=== PATIENT | female | born 1975 | race Hispanic/Latino ===

== ENCOUNTER 2018-07-08 19:30 | Emergency (ER) | payer OTHER ==
--- NOTE | 2018-07-08 20:19 | RAD REPORT ---
EXAM DESCRIPTION: RAD - Foot Right 3 View - 07/08/2018 8:11 pm CLINICAL HISTORY: Pain;Swelling COMPARISON: None FINDINGS: Nondisplaced fracture seen at the base of the fifth metatarsal compatible with a Lloyd fra cture. Mild hallux valgus seen.
--- NOTE | 2018-07-08 20:36 | ER ---
Nurse's Notes [facility] Name: Ayleen Girard Age: 42 yrs Sex: Female : 1975 Arrival Date: 07/08/2018 Time: 19:35 Bed 23 Private MD: Delbert Scruggs T Diagnosis: NON-DISPLACED FRACTURE OF BASE OF RIGHT 5 TH METATARSAL Presentation: 07/08 19:43 Presenting complaint: Patient states: Right foot pain since fall 1 week ago. Reports aj pain is not improving. Transition of care: patient was not received from another setting of care. Onset of symptoms was July 02, 2018. Risk Assessment: Do you want to hurt yourself or someone else? Patient reports no desire to harm self or others. Initial Sepsis Screen: Does the patient meet any 2 criteria? No. Patient's initial sepsis screen is negative. Does the patient have a suspected source of infection? No. Patient's initial sepsis screen is negative. Care prior to arrival: None. 19:43 Method Of Arrival: Ambulatory aj 19:43 Acuity: MACIEL 4 aj Triage Assessment: 19:46 General: Appears in no apparent distress. comfortable, Behavior is calm, cooperative, aj appropriate for age. Pain: Complains of pain in right foot. Neuro: Level of Consciousness is awake, alert, obeys commands, Oriented to person, place, time, situation, Appropriate for age. Respiratory: Airway is patent Respiratory effort is even, unlabored, Respiratory pattern is regular, symmetrical. Derm: Skin is intact, is healthy with good turgor, Skin is pink, warm \T\ dry. normal. Musculoskeletal: Reports pain in right foot. 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 - Social history:: Smoking status: Patient/guardian denies using tobacco. - Ebola Screening: : Patient negative for fever greater than or equal to 101.5 degrees Fahrenheit, and additional compatible Ebola Virus Disease symptoms Patient denies exposure to infectious person Patient denies travel to an Ebola-affected area in the 21 days before illness onset No symptoms or risks identified at this time. - Family history:: not pertinent. - Hospitalizations: : No recent hospitalization is reported. - History obtained from: friend. Screenin:57 Abuse screen: Denies threats or abuse. Nutritional screening: No deficits noted. lc1 Tuberculosis screening: No symptoms or risk factors identified. Fall Risk None identified. Assessment: 19:57 General: Appears in no apparent distress. comfortable, Behavior is calm, cooperative. lc1 Pain: Complains of pain in right foot Pain currently is 8 out of 10 on a pain scale. Quality of pain is described as tender, Pain began a week ago. Neuro: Level of Consciousness is awake, alert, obeys commands. Cardiovascular: No deficits noted. Respiratory: Airway is patent GI: No signs and/or symptoms were reported involving the gastrointestinal system. : No signs and/or symptoms were reported regarding the genitourinary system. EENT: No signs and/or symptoms were reported regarding the EENT system. Derm: No signs and/or symptoms reported regarding the dermatologic system. Musculoskeletal: Swelling present in right foot bruising to foot noted Reports pain in right foot. 21:00 Reassessment: No changes from previously documented assessment. Patient and/or family lc1 updated on plan of care and expected duration. Pain level reassessed. Vital Signs: 19:46 BP 140 / 94; Pulse 65; Resp 16; Temp 97.5; Pulse Ox 98% on R/A; Weight 74.84 kg; Height aj 5 ft. 1 in. (154.94 cm); 21:00 BP 150 / 63; Pulse 72; Resp 18; Temp 97.8(O); lc1 19:46 Body Mass Index 31.18 (74.84 kg, 154.94 cm) ED Course: 19:35 Patient arrived in ED. ds1 19:35 Delbert Scruggs MD is Private Physician. ds1 19:44 Triage completed. aj 19:46 Arm band placed on right wrist. Patient placed in an exam room. aj 19:51 Tavia Torres FNP is [facility]. kav 19:51 Corwin Lechuga MD is Attending Physician. kav 19:57 Wanda Denis is Primary Nurse. lc1 19:57 Awaiting for x-ray. lc1 19:57 Patient has correct armband on for positive identification. Bed in low position. lc1 20:12 X-ray completed. Portable x-ray completed in exam room. Patient tolerated procedure bb2 well. 20:12 Foot Right 3 View XRAY In Process Unspecified. EDMS 20:33 Maxx Oh MD is Referral Physician. kav 21:00 No provider procedures requiring assistance completed. Patient did not have IV access lc1 during this emergency room visit. Crutch training done. Ortho shoe applied to right foot. Administered Medications: 20:48 Drug: Tylenol #3 (300 mg-30 mg) 2 tabs Route: PO; lc1 21:25 Follow up: Response: No adverse reaction lc1 Outcome: 20:36 Discharge ordered by . kav 21:00 Discharged to home with crutches. 1 21:00 Condition: good 21:00 Discharge instructions given to patient, Instructed on discharge instructions, medication usage, crutch walking, Demonstrated understanding of instructions, follow-up care, medications, Prescriptions given X 1. 21:27 Patient left the ED. lc1 Signatures: Dispatcher [employer] EDMS Aide Mlils, RN RN Tavia Sparrow, FANNY RUSHINGP Raya Arreola ds1 Wanda Denis lc1 Maria Guadalupe Tabor bb2
--- NOTE | 2018-07-08 20:36 | EDPHYS ---
Physician Documentation [facility] Name: Ayleen Girard Age: 42 yrs Sex: Female : 1975 Arrival Date: 07/08/2018 Time: 19:35 Bed 23 Private MD: Delbert Scruggs T ED Physician Corwin Lechuga HPI: 07/08 19:51 This 42 yrs old Female presents to ER via Ambulatory with complaints of Foot kav Pain. 20:05 The patient presents with pain, swelling. The complaints affect the lateral aspect of kav right foot. Context: The problem was sustained at home, resulted from the patient falling, while walking. Onset: The symptoms/episode began/occurred acutely, 1 week(s) ago. Modifying factors: The symptoms are alleviated by nothing. the symptoms are aggravated by movement. Associated signs and symptoms: Pertinent positives: swelling. Severity of symptoms: At their worst the symptoms were mild, just prior to arrival. The patient has not experienced similar symptoms in the past. 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 - Social history:: Smoking status: Patient/guardian denies using tobacco. - Ebola Screening: : Patient negative for fever greater than or equal to 101.5 degrees Fahrenheit, and additional compatible Ebola Virus Disease symptoms Patient denies exposure to infectious person Patient denies travel to an Ebola-affected area in the 21 days before illness onset No symptoms or risks identified at this time. - Family history:: not pertinent. - Hospitalizations: : No recent hospitalization is reported. - History obtained from: friend. ROS: 20:05 Constitutional: Negative for fever, chills, and weight loss, Eyes: Negative for injury, kav pain, redness, and discharge, ENT: Negative for injury, pain, and discharge, Neck: Negative for injury, pain, and swelling, Cardiovascular: Negative for chest pain, palpitations, and edema, Respiratory: Negative for shortness of breath, cough, wheezing, and pleuritic chest pain, Abdomen/GI: Negative for abdominal pain, nausea, vomiting, diarrhea, and constipation, Back: Negative for injury and pain, : Negative for injury, bleeding, discharge, and swelling, Skin: Negative for injury, rash, and discoloration, Neuro: Negative for headache, weakness, numbness, tingling, and seizure, Psych: Negative for depression, anxiety, suicide ideation, homicidal ideation, and hallucinations, Allergy/Immunology: Negative for hives, rash, and allergies, Endocrine: Negative for neck swelling, polydipsia, polyuria, polyphagia, and marked weight changes, Hematologic/Lymphatic: Negative for swollen nodes, abnormal bleeding, and unusual bruising. 20:05 MS/extremity: Positive for pain, swelling, tenderness, of the lateral aspect of right foot. Exam: 20:05 Constitutional: This is a well developed, well nourished patient who is awake, alert, kav and in no acute distress. Head/Face: Normocephalic, atraumatic. Eyes: Pupils equal round and reactive to light, extra-ocular motions intact. Lids and lashes normal. Conjunctiva and sclera are non-icteric and not injected. Cornea within normal limits. Periorbital areas with no swelling, redness, or edema. ENT: Nares patent. No nasal discharge, no septal abnormalities noted. Tympanic membranes are normal and external auditory canals are clear. Oropharynx with no redness, swelling, or masses, exudates, or evidence of obstruction, uvula midline. Mucous membranes moist. Neck: Trachea midline, no thyromegaly or masses palpated, and no cervical lymphadenopathy. Supple, full range of motion without nuchal rigidity, or vertebral point tenderness. No Meningismus. Chest/axilla: Normal chest wall appearance and motion. Nontender with no deformity. No lesions are appreciated. Cardiovascular: Regular rate and rhythm with a normal S1 and S2. No gallops, murmurs, or rubs. Normal PMI, no JVD. No pulse deficits. Respiratory: Lungs have equal breath sounds bilaterally, clear to auscultation and percussion. No rales, rhonchi or wheezes noted. No increased work of breathing, no retractions or nasal flaring. Abdomen/GI: Soft, non-tender, with normal bowel sounds. No distension or tympany. No guarding or rebound. No evidence of tenderness throughout. Back: No spinal tenderness. No costovertebral tenderness. Full range of motion. Skin: Warm, dry with normal turgor. Normal color with no rashes, no lesions, and no evidence of cellulitis. Neuro: Awake and alert, GCS 15, oriented to person, place, time, and situation. Cranial nerves II-XII grossly intact. Motor strength 5/5 in all extremities. Sensory grossly intact. Cerebellar exam normal. Normal gait. Psych: Awake, alert, with orientation to person, place and time. Behavior, mood, and affect are within normal limits. 20:05 Musculoskeletal/extremity: Extremities: noted in the lateral aspect of right foot: ROM: limited active range of motion, in the lateral aspect of right foot, Circulation is intact in all extremities. Pulses: are normal with no appreciated deficits, noted to be 2+ in the bilateral radial, brachial, femoral, popliteal, posterior tibial and and dorsalis pedis arteries., Sensation intact. Vital Signs: 19:46 BP 140 / 94; Pulse 65; Resp 16; Temp 97.5; Pulse Ox 98% on R/A; Weight 74.84 kg; Height aj 5 ft. 1 in. (154.94 cm); 21:00 BP 150 / 63; Pulse 72; Resp 18; Temp 97.8(O); lc1 19:46 Body Mass Index 31.18 (74.84 kg, 154.94 cm) aj [facility]: 19:58 Medical screening is not applicable. [facility] 20:32 Data reviewed: vital signs, nurses notes, radiologic studies, plain films. [facility] 07/08 19:58 Order name: Foot Right 3 View XRAY; Complete Time: 20:29 [facility] 07/08 20:32 Order name: Crutches; Complete Time: 20:59 [facility] 07/08 20:58 Order name: Post-op Orthopedic Shoe; Complete Time: 20:59 rg2 Administered Medications: 20:48 Drug: Tylenol #3 (300 mg-30 mg) 2 tabs Route: PO; 1 21:25 Follow up: Response: No adverse reaction lc1 Disposition: 07/09 03:06 Co-signature as Attending Physician, Corwin Lechuga MD. Disposition: 07/08/18 20:36 Discharged to Home. Impression: NON-DISPLACED FRACTURE OF BASE OF RIGHT 5 TH METATARSAL. - Condition is Stable. - Discharge Instructions: Metatarsal Fracture. - Prescriptions for Tylenol- Codeine #3 300-30 mg Oral Tablet - take 2 tablet by ORAL route every 6 hours As needed; 30 tablet. - Work release form, Medication Reconciliation Form, Thank You Letter, Prescription Opioid Use form. - Follow up: Maxx Oh MD; When: 2 - 3 days; Reason: Recheck today's complaints, Continuance of care, Re-evaluation by your physician. - Problem is new. - Symptoms have improved. Signatures: Dispatcher [employer] EDMS Marissa Tobin rg2 Aide Mills RN RN Tavia Sparrow, DATA ANALYSIS ASSISTANT DATA ANALYSIS ASSISTANT elijah Denis, Wanda lc1 Corwin Lechuga MD MD Corrections: (The following items were deleted from the chart) 07/08 20:58 20:32 Splint - Posterior Leg ordered. ka rg2 20:59 20:32 Jairon wrap-joint ordered. elijah rg2 21:27 20:36 07/08/2018 20:36 Discharged to Home. Impression: NON-DISPLACED FRACTURE OF BASE lc1 OF RIGHT 5 TH METATARSAL. Condition is Stable. Forms are Medication Reconciliation Form, Thank You Letter, Antibiotic Education, Prescription Opioid Use. Follow up: Dr. Maxx Oh; When: 2 - 3 days; Reason: Recheck today's complaints, Continuance of care, Re-evaluation by your physician. Problem is new. Symptoms have improved. elijah
[2018-07-08] MEDS ORDERED: CODEINE 30MG/APAP 300MG TAB ONE (20:51)
== END 2018-07-08 21:27 | disposition home or self-care (01) ==
LOC: ER 19:30
DX: S92.354A Nondisplaced fracture of fifth metatarsal bone, right foot, initial encounter for closed fracture (principal); W18.30XA Fall on same level, unspecified, initial encounter; Y93.01 Activity, walking, marching and hiking; Y92.009 Unspecified place in unspecified non-institutional (private) residence as the place of occurrence of the external cause; E03.9 Hypothyroidism, unspecified
CPT/HCPCS: 99284

== ENCOUNTER 2019-03-29 11:35 | Emergency (ER) | payer OTHER ==
--- OUTSIDE RECORDS SUMMARY | 2019-03-29 11:43 | XMS REPORT ---
:1975 [facility] Address [address] [place] [address] Dr. Moreau [address] [place] [id number] Care Team Providers Name Role Phone Unavailable Unavailable Unavailable Problems This patient has no known problems. Allergies, Adverse Reactions, Alerts This patient has no known allergies or adverse reactions. Medications This patient has no known medications.
--- NOTE | 2019-03-29 14:46 | RAD REPORT ---
EXAM DESCRIPTION: US - Extremity Venous Uni Ltd - 03/29/2019 2:22 pm CLINICAL HISTORY: PAIN Leg swelling and edema. COMPARISON: EXT VENOUS W COMPRESSION NEDA dated 09/25/2015 FINDINGS: Left lower extremity venous system was interrogated with Doppler technique. Normal flow, c ompressibility and augmentation was noted. There is no DVT present. IMPRESSION: No evidence of left lower extremity deep venous thrombosis.
--- NOTE | 2019-03-29 15:26 | ER ---
Nurse's Notes [facility] Name: Ayleen Girard Age: 43 yrs Sex: Female : 1975 Arrival Date: 03/29/2019 Time: 11:37 Bed 12 Private MD: Diagnosis: Pain in left knee Presentation: 03/29 11:38 Presenting complaint: Patient states: left knee pain since Friday. Denies known aa5 injury. Pt states "my doctor said to come here because I take warfarin and I have a history of blood clots". Transition of care: patient was not received from another setting of care. Onset of symptoms was March 2019. Risk Assessment: Do you want to hurt yourself or someone else? Patient reports no desire to harm self or others. Initial Sepsis Screen: Does the patient meet any 2 criteria? No. Patient's initial sepsis screen is negative. Does the patient have a suspected source of infection? No. Patient's initial sepsis screen is negative. Care prior to arrival: None. 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 - Social history:: Smoking status: Patient/guardian denies using tobacco. - Ebola Screening: : No symptoms or risks identified at this time. Screenin:30 Abuse screen: Denies threats or abuse. Denies injuries from another. Nutritional ss screening: No deficits noted. Tuberculosis screening: Never had TB. Fall Risk None identified. Assessment: 15:12 Reassessment: Patient appears in no apparent distress at this time. Patient and/or ss family updated on plan of care and expected duration. Pain level reassessed. Patient is alert, oriented x 3, equal unlabored respirations, skin warm/dry/pink. Vital Signs: 11:40 BP 141 / 88; Pulse 57; Resp 16 S; Temp 97.5(TE); Pulse Ox 100% on R/A; Weight 74.84 kg aa5 (R); Height 5 ft. 2 in. (157.48 cm) (R); Pain 10/10; 11:40 Body Mass Index 30.18 (74.84 kg, 157.48 cm) aa5 ED Course: 11:37 Patient arrived in ED. as 11:38 Arm band placed on. aa5 11:39 Triage completed. aa5 13:53 Farheen Palmer FNP-C [facility]. kb 13:53 Gurvinder Chicas MD is Attending Physician. kb 14:19 US Extremity Venous Unilateral Ltd In Process Unspecified. EDMS 14:30 Louisa Caldwell, RN is Primary Nurse. ss 14:30 Patient has correct armband on for positive identification. Bed in low position. Call ss light in reach. 15:28 No provider procedures requiring assistance completed. Patient did not have IV access ss during this emergency room visit. Administered Medications: No medications were administered Outcome: 15:25 Discharge ordered by MD. kb 15:28 Discharged to home ambulatory. ss 15:28 Condition: good 15:28 Discharge instructions given to patient, Instructed on discharge instructions, follow up and referral plans. medication usage, Demonstrated understanding of instructions, follow-up care, medications. 15:29 Patient left the ED. ss Signatures: Dispatcher [employer] EDVA Farheen Palmer FNP-C FNP-Ckb Martinez, Amelia as Calderon, Audri RN RN [facility] Louisa Caldwell, ROBBY RN ss
--- NOTE | 2019-03-29 15:26 | EDPHYS ---
Physician Documentation [facility] Name: Ayleen Girard Age: 43 yrs Sex: Female : 1975 Arrival Date: 03/29/2019 Time: 11:37 Bed 12 Private MD: ED Physician Gurvinder Chicas HPI: 03/29 15:24 This 43 yrs old Female presents to ER via Ambulatory with complaints of Knee kb Pain. 15:24 The patient presents with pain, that is acute, tenderness. The complaints affect the kb left knee. Context: The problem was sustained at home, resulted from an unknown cause, the patient can fully bear weight, the patient is able to ambulate, Problem is a result from a previous injury: No. Onset: The symptoms/episode began/occurred 2 day(s) ago. Modifying factors: The symptoms are alleviated by nothing. the symptoms are aggravated by weight bearing. Associated signs and symptoms: The patient has no apparent associated signs or symptoms. Treatment prior to arrival includes: no previous treatment. Severity of symptoms: At their worst the symptoms were moderate, in the emergency department the symptoms are unchanged. The patient has not experienced similar symptoms in the past. The patient has not recently seen a physician. 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 - Social history:: Smoking status: Patient/guardian denies using tobacco. - Ebola Screening: : No symptoms or risks identified at this time. ROS: 15:22 Constitutional: Negative for fever, chills, and weight loss, ENT: Negative for injury, kb pain, and discharge, Neck: Negative for injury, pain, and swelling, Cardiovascular: Negative for chest pain, palpitations, and edema, Respiratory: Negative for shortness of breath, cough, wheezing, and pleuritic chest pain, Abdomen/GI: Negative for abdominal pain, nausea, vomiting, diarrhea, and constipation, Skin: Negative for injury, rash, and discoloration, Neuro: Negative for headache, weakness, numbness, tingling, and seizure. 15:22 MS/extremity: Positive for pain, tenderness. Exam: 15:22 Constitutional: This is a well developed, well nourished patient who is awake, alert, kb and in no acute distress. Head/Face: Normocephalic, atraumatic. Chest/axilla: Normal chest wall appearance and motion. Nontender with no deformity. No lesions are appreciated. Cardiovascular: Regular rate and rhythm with a normal S1 and S2. No gallops, murmurs, or rubs. Normal PMI, no JVD. No pulse deficits. Respiratory: Lungs have equal breath sounds bilaterally, clear to auscultation and percussion. No rales, rhonchi or wheezes noted. No increased work of breathing, no retractions or nasal flaring. Abdomen/GI: Soft, non-tender, with normal bowel sounds. No distension or tympany. No guarding or rebound. No evidence of tenderness throughout. Skin: Warm, dry with normal turgor. Normal color with no rashes, no lesions, and no evidence of cellulitis. Neuro: Awake and alert, GCS 15, oriented to person, place, time, and situation. Cranial nerves II-XII grossly intact. Motor strength 5/5 in all extremities. Sensory grossly intact. Cerebellar exam normal. Normal gait. 15:22 Musculoskeletal/extremity: Extremities: grossly normal except: noted in the left knee: pain, tenderness, ROM: intact in all extremities, Circulation is intact in all extremities. Sensation intact. Weight bearing: able to fully bear weight. Vital Signs: 11:40 BP 141 / 88; Pulse 57; Resp 16 S; Temp 97.5(TE); Pulse Ox 100% on R/A; Weight 74.84 kg aa5 (R); Height 5 ft. 2 in. (157.48 cm) (R); Pain 10/10; 11:40 Body Mass Index 30.18 (74.84 kg, 157.48 cm) aa5 MDM: 13:55 Patient medically screened. kb 15:23 Data reviewed: vital signs, nurses notes. Data interpreted: Pulse oximetry: on room air kb is 100 %. Interpretation: normal. Counseling: I had a detailed discussion with the patient and/or guardian regarding: the historical points, exam findings, and any diagnostic results supporting the discharge/admit diagnosis, radiology results, the need for outpatient follow up, a orthopedic surgeon, to return to the emergency department if symptoms worsen or persist or if there are any questions or concerns that arise at home. 03/29 14:05 Order name: US Extremity Venous Unilateral Ltd; Complete Time: 14:54 kb Administered Medications: No medications were administered Disposition: 03/29/19 15:25 Discharged to Home. Impression: Pain in left knee. - Condition is Stable. - Discharge Instructions: Knee Pain, [id number]. - Medication Reconciliation Form, Thank You Letter, Antibiotic Education, Prescription Opioid Use form. - Follow up: Emergency Department; When: As needed; Reason: Worsening of condition. Follow up: Private Physician; When: 2 - 3 days; Reason: Recheck today's complaints, Continuance of care, Re-evaluation by your physician. Signatures: Dispatcher [employer] EDFarheen Anders, MANAGER CUSTOMER SERVICE-C MANAGER CUSTOMER SERVICE-Amanda Santiago, RN RN aa5 Louisa Caldwell RN RN ss Corrections: (The following items were deleted from the chart) 15: 15:25 03/29/2019 15:25 Discharged to Home. Impression: Pain in left knee. Condition is ss Stable. Forms are Medication Reconciliation Form, Thank You Letter, Antibiotic Education, Prescription Opioid Use. Follow up: Emergency Department; When: As needed; Reason: Worsening of condition. Follow up: Private Physician; When: 2 - 3 days; Reason: Recheck today's complaints, Continuance of care, Re-evaluation by your physician. kb
== END 2019-03-29 15:29 | disposition home or self-care (01) ==
LOC: ER 11:35
DX: M25.562 Pain in left knee (principal); E03.9 Hypothyroidism, unspecified; Z79.01 Long term (current) use of anticoagulants; Z86.711 Personal history of pulmonary embolism
CPT/HCPCS: 93971

== ENCOUNTER 2019-05-02 11:09 | Emergency (ER) | payer OTHER ==
--- OUTSIDE RECORDS SUMMARY | 2019-05-02 11:12 | XMS REPORT ---
:1975 [facility] Address [address] [place] [address] Dr. Moreau [address] [place] [id number] Care Team Providers Name Role Phone Unavailable Unavailable Unavailable Problems This patient has no known problems. Allergies, Adverse Reactions, Alerts This patient has no known allergies or adverse reactions. Medications This patient has no known medications.
--- NOTE | 2019-05-02 14:07 | RAD REPORT ---
EXAM DESCRIPTION: Lena Garcia (2 Views)05/02/2019 12:03 pm CLINICAL HISTORY: Cough COMPARISON: 2015 FINDINGS: The lungs appear clear of acute infiltrate. The heart is normal size IMPRESSION: No acute abnormalities displayed
--- NOTE | 2019-05-02 14:12 | ER ---
Nurse's Notes [facility] Name: Ayleen Girard Age: 43 yrs Sex: Female : 1975 Arrival Date: 05/02/2019 Time: 11:13 Bed 18 Private MD: Diagnosis: Acute bronchitis Presentation: 05/02 11:21 Presenting complaint: Patient states: COUGH, SORE THROAT SINCE Y/D. Transition of care: bp patient was not received from another setting of care. Onset of symptoms is unknown. Risk Assessment: Do you want to hurt yourself or someone else? Patient reports no desire to harm self or others. Initial Sepsis Screen: Does the patient meet any 2 criteria? No. Patient's initial sepsis screen is negative. Does the patient have a suspected source of infection? No. Patient's initial sepsis screen is negative. Care prior to arrival: None. 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 - Social history:: Smoking status: Patient/guardian denies using tobacco. - Ebola Screening: : No symptoms or risks identified at this time. Screenin:50 Abuse screen: Denies threats or abuse. Nutritional screening: No deficits noted. em Tuberculosis screening: No symptoms or risk factors identified. Fall Risk None identified. Assessment: 11:50 General: Appears in no apparent distress. comfortable, Behavior is calm, cooperative. em Pain: Denies pain. Neuro: Level of Consciousness is awake, alert, obeys commands, Oriented to person, place, time, situation. Cardiovascular: Capillary refill < 3 seconds Patient's skin is warm and dry. Respiratory: Reports cough that is productive, pain with cough Airway is patent Respiratory effort is even, unlabored, Breath sounds are clear bilaterally. GI: Abdomen is flat, Patient currently denies nausea, vomiting. EENT: Nares are clear Oral mucosa is moist. Throat is clear is pink. Derm: Skin is intact, is healthy with good turgor, Skin is pink, warm \T\ dry. Musculoskeletal: Capillary refill < 3 seconds, Range of motion: intact in all extremities. 13:00 Reassessment: Patient appears in no apparent distress at this time. Patient and/or em family updated on plan of care and expected duration. Pain level reassessed. Patient is alert, oriented x 3, equal unlabored respirations, skin warm/dry/pink. 13:45 Reassessment: called x-ray dept. for update on radiology results, radiology dept. will em contact radiologist. 14:20 Reassessment: Patient appears in no apparent distress at this time. Patient and/or em family updated on plan of care and expected duration. Pain level reassessed. Patient is alert, oriented x 3, equal unlabored respirations, skin warm/dry/pink. Vital Signs: 11:23 BP 126 / 83; Pulse 68; Resp 16; Temp 97.9; Pulse Ox 97% ; Weight 74.84 kg; Height 5 ft. bp 2 in. (157.48 cm); 12:59 BP 116 / 73; Pulse 56; Resp 17; Temp 98.4(O); Pulse Ox 100% on R/A; mh5 13:48 BP 111 / 65; Pulse 61; Resp 15; Temp 97.9(O); Pulse Ox 100% on R/A; mh5 11:23 Body Mass Index 30.18 (74.84 kg, 157.48 cm) bp ED Course: 11:13 Patient arrived in ED. tw3 11:22 Chacorta Juarez LVN is Primary Nurse. em 11:22 Triage completed. bp 11:23 Spencer Villagomez PA is PHCP. jmm 11:23 Tejas Marcos MD is Attending Physician. jmm 11:23 Arm band placed on. bp 11:50 Patient has correct armband on for positive identification. Bed in low position. Call em light in reach. Door closed. Warm blanket given. 11:50 Flu and/or RSV swab sent to lab. Strep swab sent to lab. em 12:01 Chest Pa And Lat (2 Views) XRAY In Process Unspecified. EDMS 14:19 No provider procedures requiring assistance completed. Patient did not have IV access em during this emergency room visit. Administered Medications: No medications were administered Outcome: 14:10 Discharge ordered by . geoffrey 14:19 Discharged to home ambulatory. em 14:19 Condition: good 14:19 Discharge instructions given to patient, Instructed on discharge instructions, follow up and referral plans. medication usage, Demonstrated understanding of instructions, follow-up care, medications, Prescriptions given X 2. 14:20 Patient left the ED. em Signatures: Dispatcher [employer] EDSpencer Anders PA PA jmm Munoz, Edgar, FOOD BEVERAGE ATTENDANT FOOD BEVERAGE ATTENDANT em Adrianne Bui 5 Alvarez, Lauren tw3 Jesus Davis, RN RN bp Corrections: (The following items were deleted from the chart) 14:20 12:45 Reassessment: called x-ray dept. for update on radiology results, radiology dept. em will contact radiologist em
--- NOTE | 2019-05-02 14:12 | EDPHYS ---
Physician Documentation [facility] Name: Ayleen Girard Age: 43 yrs Sex: Female : 1975 Arrival Date: 05/02/2019 Time: 11:13 Bed 18 Private MD: ED Physician Tejas Marcos HPI: 05/02 11:35 This 43 yrs old Female presents to ER via Ambulatory with complaints of Cough, jmm Sore Throat. 11:35 The patient or guardian reports cough. Onset: The symptoms/episode began/occurred jmm gradually, 1 day(s) ago. Associated signs and symptoms: Pertinent positives: chest pain, with cough, fever, sore throat. This is a 43 year old female that presents to the ED with complaints of cough, sore throat, congestion. patient states vomiting after coughing yesterday. Complains of subjective fever and chills. . 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 - Social history:: Smoking status: Patient/guardian denies using tobacco. - Ebola Screening: : No symptoms or risks identified at this time. ROS: 11:35 Constitutional: Positive for fever. jmm 11:35 ENT: Positive for sore throat. 11:35 Cardiovascular: Positive for chest pain, with cough. 11:35 Respiratory: Positive for cough. 11:35 Abdomen/GI: Positive for vomiting, Negative for abdominal pain, diarrhea. 11:35 All other systems are negative. Exam: 11:35 Head/Face: atraumatic. Eyes: EOMI, no conjunctival erythema appreciated jmm 11:35 Neck: Trachea midline, Supple Chest/axilla: Normal chest wall appearance and motion. 11:35 Constitutional: The patient appears in no acute distress, alert, awake. 11:35 ENT: TM's: are normal, Posterior pharynx: erythema, that is mild. 11:35 Cardiovascular: Rate: normal, Rhythm: regular, Pulses: no pulse deficits are appreciated. 11:35 Respiratory: the patient does not display signs of respiratory distress, Respirations: normal, Breath sounds: are clear throughout. 11:35 Abdomen/GI: Inspection: abdomen appears normal, Bowel sounds: normal, Palpation: abdomen is soft and non-tender, in all quadrants. 11:35 Skin: Appearance: Color: normal in color. 11:35 Neuro: Orientation: is normal, Mentation: is normal, Memory: is normal. 11:35 Psych: Behavior/mood is pleasant, cooperative. Vital Signs: 11:23 BP 126 / 83; Pulse 68; Resp 16; Temp 97.9; Pulse Ox 97% ; Weight 74.84 kg; Height 5 ft. bp 2 in. (157.48 cm); 12:59 BP 116 / 73; Pulse 56; Resp 17; Temp 98.4(O); Pulse Ox 100% on R/A; mh5 13:48 BP 111 / 65; Pulse 61; Resp 15; Temp 97.9(O); Pulse Ox 100% on R/A; mh5 11:23 Body Mass Index 30.18 (74.84 kg, 157.48 cm) bp MDM: 11:35 Patient medically screened. [facility] 14:09 Data reviewed: vital signs, nurses notes. Counseling: I had a detailed discussion with geoffrey the patient and/or guardian regarding: the historical points, exam findings, and any diagnostic results supporting the discharge/admit diagnosis, lab results, radiology results, the need for outpatient follow up, to return to the emergency department if symptoms worsen or persist or if there are any questions or concerns that arise at home. ED course: Patient is alert and non toxic in appearance in the ED. Symptoms appear viral. Patient is advised to follow up with pcp and otherwise given strict return precautions. Patient understood and agrees with the plan of care. . 05/02 11:46 Order name: Flu; Complete Time: 13:03 [facility] 05/02 11:46 Order name: Strep; Complete Time: 13:03 [facility] 05/02 11:46 Order name: Chest Pa And Lat (2 Views) XRAY; Complete Time: 14:09 [facility] 05/02 12:16 Order name: Throat Culture EDMS Administered Medications: No medications were administered Disposition: 05/03 07:43 Co-signature as Attending Physician, Tejas Marcos MD I agree with the assessment and [facility] plan of care. Disposition: 05/02/19 14:10 Discharged to Home. Impression: Acute bronchitis. - Condition is Stable. - Discharge Instructions: Acute Bronchitis, Adult. - Prescriptions for Prednisone 20 mg Oral Tablet - take 3 tablet by ORAL route once daily for 5 days; 15 tablet. Albuterol Sulfate 90 mcg/actuation - inhale 1-2 puff by INHALATION route every 4-6 hours; 1 Inhaler. - Medication Reconciliation Form, Thank You Letter, Antibiotic Education, Prescription Opioid Use, Work release form form. - Follow up: Private Physician; When: 2 - 3 days; Reason: Recheck today's complaints, Continuance of care, Re-evaluation by your physician. Signatures: Dispatcher [employer] EDTejas Kee MD MD cha Mickail, Joel, PA PA Chacorta Bach, EDUCATIONAL RESOURCE CENTER TEACHER EDUCATIONAL RESOURCE CENTER TEACHER Jesus Encinas, RN RN bp Corrections: (The following items were deleted from the chart) 05/02 14:20 14:10 05/02/2019 14:10 Discharged to Home. Impression: Acute bronchitis. Condition is em Stable. Forms are Medication Reconciliation Form, Thank You Letter, Antibiotic Education, Prescription Opioid Use. Follow up: Private Physician; When: 2 - 3 days; Reason: Recheck today's complaints, Continuance of care, Re-evaluation by your physician. geoffrey
== END 2019-05-02 14:20 | disposition home or self-care (01) ==
LOC: ER 11:09
DX: J20.9 Acute bronchitis, unspecified (principal); E03.9 Hypothyroidism, unspecified
CPT/HCPCS: 71046; 87070; 87081; 87804; 99283

== ENCOUNTER 2019-07-26 15:58 | Emergency (ER) | payer OTHER ==
--- OUTSIDE RECORDS SUMMARY | 2019-07-26 15:59 | XMS REPORT ---
:1975 [facility] Address [address] [place] [address] Dr. Moreau [address] [place] [id number] Care Team Providers Name Role Phone Unavailable Unavailable Unavailable Problems This patient has no known problems. Allergies, Adverse Reactions, Alerts This patient has no known allergies or adverse reactions. Medications This patient has no known medications.
--- NOTE | 2019-07-26 16:46 | RAD REPORT ---
EXAM DESCRIPTION: RAD - Hip Left 2 View - 07/26/2019 4:37 pm CLINICAL HISTORY: Left-sided hip and pelvis pain COMPARISON: CT study 2015 FINDINGS: AP and frogleg views of the left hip were obtained. There is no fracture or dislocation of the proximal left femur. No acute or destructive bony process seen of the femur. No hip joint effus ion or periarticular abnormality suspected. Bone destructive changes are evident in the junction of the superior pubic ramus with the anterior co lumn. The appearance favors bone destruction rather than incompletely healed fracture. No fracture ch anges were present in 2015. No intervening imaging between 2015 and the current examination. No histo ry of pelvis fracture. Bony changes in the inferior pubic ramus on the left are present. These are more indeterminate as to being trauma versus bone destruction. IMPRESSION: Bone loss changes left superior pubic ramus at the junction with the anterior column. 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 Remodeling of the bony changes in the inferior pubic ramus. These are less aggressive in appearance. Correlation is needed with any malignant history. No acute proximal femur finding on the left.
--- NOTE | 2019-07-26 17:00 | ER ---
Nurse's Notes [facility] Name: Ayleen Girard Age: 43 yrs Sex: Female : 1975 Arrival Date: 07/26/2019 Time: 16:02 Bed 23 Private MD: Delbert Scruggs T Diagnosis: Pain in left hip Presentation: 07/26 16:03 Presenting complaint: Patient states: my L hip started hurting yesterday, denies hj trauma, reports started working out;. Transition of care: patient was not received from another setting of care. Onset of symptoms was July 26, 2019. Risk Assessment: Do you want to hurt yourself or someone else? Patient reports no desire to harm self or others. Initial Sepsis Screen: Does the patient meet any 2 criteria? No. Patient's initial sepsis screen is negative. Does the patient have a suspected source of infection? No. Patient's initial sepsis screen is negative. Care prior to arrival: None. 16:03 Method Of Arrival: Ambulatory 16:03 Acuity: MACIEL 4 hj Triage Assessment: 16:08 General: Appears in no apparent distress. uncomfortable, Behavior is cooperative, bp appropriate for age, anxious. Pain: Complains of pain in pelvis. EENT: No deficits noted. Neuro: No deficits noted. Cardiovascular: No deficits noted. Respiratory: No deficits noted. GI: No signs and/or symptoms were reported involving the gastrointestinal system. : No signs and/or symptoms were reported regarding the genitourinary system. Derm: No deficits noted. Musculoskeletal: Circulation, motion, and sensation intact. Range of motion: intact in all extremities. 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 - Social history:: Smoking status: Patient/guardian denies using tobacco. - Ebola Screening: : No symptoms or risks identified at this time. Screenin:09 Abuse screen: Denies threats or abuse. Denies injuries from another. Nutritional bp screening: No deficits noted. Tuberculosis screening: No symptoms or risk factors identified. Fall Risk No fall in past 12 months (0 pts). Secondary diagnosis (15 points) impaired mobility, Ambulatory Aid- Crutches/Cane/Walker (15 pts). Total Castillo Fall Scale indicates Low Risk Score (25-44 pts). Fall prevention measures have been instituted. Side Rails Up X 2 Placed close to Nursing Station Frequent Obs/Assesments occuring Family Present and informed to notify staff if they need to leave bedside. Assessment: 16:09 General: SEE TRIAGE NOTE. bp 16:26 Reassessment: PT TO XRAY. bp 16:40 Reassessment: PT RETURNED FROM XRAY. bp 17:14 Reassessment: PT D/C HOME VIA WALKER WITH FAMILY, DX WITH MUSCULOSKELETAL PAIN. bp Vital Signs: 16:04 BP 137 / 94; Pulse 95; Resp 18; Temp 98.1; Pulse Ox 100% on R/A; Weight 77.11 kg; hj Height 5 ft. 2 in. (157.48 cm); Pain 10/10; 16:04 Body Mass Index 31.09 (77.11 kg, 157.48 cm) ED Course: 16:02 Patient arrived in ED. mr 16:02 Delbert Scruggs MD is Private Physician. mr 16:03 Farheen Palmer FNP-C is [facility]. kb 16:03 Tejas Marcos MD is Attending Physician. kb 16:04 Triage completed. hj 16:04 Arm band placed on right wrist. hj 16:07 Jesus Davis, ROBBY is Primary Nurse. bp 16:09 Patient has correct armband on for positive identification. Bed in low position. Call bp light in reach. Side rails up X2. 16:36 Hip Left 2 View XRAY In Process Unspecified. EDMS 16:58 Delbert Scruggs MD is Referral Physician. kb 17:15 No provider procedures requiring assistance completed. Patient did not have IV access bp during this emergency room visit. Administered Medications: No medications were administered Outcome: 16:58 Discharge ordered by . kb 17:15 Discharged to home ambulatory, with family. bp 17:15 Condition: stable 17:15 Discharge instructions given to patient, Instructed on discharge instructions, follow up and referral plans. medication usage, Demonstrated understanding of instructions, follow-up care, medications, Prescriptions given X 2. 17:16 Patient left the ED. bp Signatures: Dispatcher [employer] EDMS Farheen Palmer FNP-C ENGINEERING DESIGN MANAGER-Ckb Wanda Ramsay mr Navid Mosley, RN RN hj Jesus Davis, ROBBY RN bp
--- NOTE | 2019-07-26 17:01 | EDPHYS ---
Physician Documentation [facility] Name: Ayleen Girrad Age: 43 yrs Sex: Female : 1975 Arrival Date: 07/26/2019 Time: 16:02 Bed 23 Private MD: Delbert Scruggs T ED Physician Tejas Marcos HPI: 07/26 16:13 This 43 yrs old Female presents to ER via Ambulatory with complaints of Hip kb Pain. 16:13 The patient or guardian reports pain. that occurred at work, sustained from unknown, kb was walking when it started There is no obvious deformity, The patient is able to ambulate with assistance. The patient is able to bear their full body weight. There is no radiation of the patient's discomfort. The complaints affect the left hip. Onset: The symptoms/episode began/occurred yesterday. Modifying factors: The symptoms are alleviated by nothing, the symptoms are aggravated by weight bearing. Associated signs and symptoms: Loss of consciousness: the patient experienced no loss of consciousness, Pertinent positives: None. Severity of symptoms: At their worst the symptoms were mild, moderate, in the emergency department the symptoms are unchanged. The patient has not experienced similar symptoms in the past. The patient has not recently seen a physician. Pt reports left hip pain that started when she was walking yesterday. States she just started working out so she thinks it has something to do with it but denies injury or trauma. Today pain started getting worse with ambulation. . 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 - Social history:: Smoking status: Patient/guardian denies using tobacco. - Ebola Screening: : No symptoms or risks identified at this time. ROS: 16:08 Constitutional: Negative for fever, chills, and weight loss, ENT: Negative for injury, kb pain, and discharge, Neck: Negative for injury, pain, and swelling, Cardiovascular: Negative for chest pain, palpitations, and edema, Respiratory: Negative for shortness of breath, cough, wheezing, and pleuritic chest pain, Abdomen/GI: Negative for abdominal pain, nausea, vomiting, diarrhea, and constipation, Back: Negative for injury and pain, : Negative for injury, bleeding, discharge, and swelling, Skin: Negative for injury, rash, and discoloration, Neuro: Negative for headache, weakness, numbness, tingling, and seizure. 16:08 MS/extremity: Positive for pain, tenderness, of the left hip. Exam: 16:08 Constitutional: This is a well developed, well nourished patient who is awake, alert, kb and in no acute distress. Head/Face: Normocephalic, atraumatic. ENT: Nares patent. No nasal discharge, no septal abnormalities noted. Tympanic membranes are normal and external auditory canals are clear. Oropharynx with no redness, swelling, or masses, exudates, or evidence of obstruction, uvula midline. Mucous membranes moist. Neck: Trachea midline, no thyromegaly or masses palpated, and no cervical lymphadenopathy. Supple, full range of motion without nuchal rigidity, or vertebral point tenderness. No Meningismus. Chest/axilla: Normal chest wall appearance and motion. Nontender with no deformity. No lesions are appreciated. Cardiovascular: Regular rate and rhythm with a normal S1 and S2. No gallops, murmurs, or rubs. Normal PMI, no JVD. No pulse deficits. Respiratory: Lungs have equal breath sounds bilaterally, clear to auscultation and percussion. No rales, rhonchi or wheezes noted. No increased work of breathing, no retractions or nasal flaring. Abdomen/GI: Soft, non-tender, with normal bowel sounds. No distension or tympany. No guarding or rebound. No evidence of tenderness throughout. Skin: Warm, dry with normal turgor. Normal color with no rashes, no lesions, and no evidence of cellulitis. Neuro: Awake and alert, GCS 15, oriented to person, place, time, and situation. Cranial nerves II-XII grossly intact. Motor strength 5/5 in all extremities. Sensory grossly intact. Cerebellar exam normal. Normal gait. 16:08 Musculoskeletal/extremity: Extremities: grossly normal except: noted in the left hip: pain, ROM: intact in all extremities, Circulation is intact in all extremities. Sensation intact. Weight bearing: can bear weight with assistance only, uses walker. Vital Signs: 16:04 BP 137 / 94; Pulse 95; Resp 18; Temp 98.1; Pulse Ox 100% on R/A; Weight 77.11 kg; hj Height 5 ft. 2 in. (157.48 cm); Pain 10/10; 16:04 Body Mass Index 31.09 (77.11 kg, 157.48 cm) hj MDM: 16:06 Patient medically screened. kb 16:08 Data reviewed: vital signs, nurses notes. Data interpreted: Pulse oximetry: on room air kb is 100 %. Interpretation: normal. Counseling: I had a detailed discussion with the patient and/or guardian regarding: the historical points, exam findings, and any diagnostic results supporting the discharge/admit diagnosis, radiology results, the need for outpatient follow up, a family practitioner, to return to the emergency department if symptoms worsen or persist or if there are any questions or concerns that arise at home. 16:57 ED course: Pt educated on pattern reflecting a possible neoplastic bone destruction. Pt kb reports she has never had any cancer. Will follow up with DR Scruggs tomorrow for further evaluation. 07/26 16:06 Order name: Hip Left 2 View XRAY; Complete Time: 16:53 kb Administered Medications: No medications were administered Disposition: 07/26/19 16:58 Discharged to Home. Impression: Pain in left hip. - Condition is Stable. - Discharge Instructions: Musculoskeletal Pain. - Prescriptions for Cyclobenzaprine 10 mg Oral Tablet - take 1 tablet by ORAL route every 8 hours As needed; 21 tablet. Diclofenac Sodium 75 mg Oral Tablet, Delayed Release (E.C.) - take 1 tablet by ORAL route 2 times per day As needed; 30 tablet. - Medication Reconciliation Form, Thank You Letter, Antibiotic Education, Prescription Opioid Use form. - Follow up: Emergency Department; When: As needed; Reason: Worsening of condition. Follow up: Delbert Scruggs MD; When: Tomorrow; Reason: Recheck today's complaints, Continuance of care, Re-evaluation by your physician. Addendum: 07/27/2019 20:34 Co-signature as Attending Physician, Tejas Marcos MD I agree with the assessment and c rush plan of care. Signatures: Dispatcher [employer] EDFarheen Anders, FANNY-C FANNY-Tejas Sotomayor MD MD cha Joaquin, Henry, RN RN Jesus Dunn, RN RN bp Corrections: (The following items were deleted from the chart) 07/26 17:16 16:58 07/26/2019 16:58 Discharged to Home. Impression: Pain in left hip. Condition is bp Stable. Forms are Medication Reconciliation Form, Thank You Letter, Antibiotic Education, Prescription Opioid Use. Follow up: Emergency Department; When: As needed; Reason: Worsening of condition. Follow up: Delbert Scruggs; When: Tomorrow; Reason: Recheck today's complaints, Continuance of care, Re-evaluation by your physician. kb
== END 2019-07-26 17:16 | disposition home or self-care (01) ==
LOC: ER 15:58
DX: M25.552 Pain in left hip (principal)
CPT/HCPCS: 99283

== ENCOUNTER 2019-11-07 13:13 | Emergency (ER) | payer OTHER ==
--- OUTSIDE RECORDS SUMMARY | 2019-11-07 13:16 | XMS REPORT | Summary of Care ---
:1975 Author Organization [facility] Address [address] [place] [address] Care Team Providers Name Role Phone Delbert Scruggs Primary Care Provider Reason for Visit Reason Comments Refill Request Encounter Details Date Type Department Care Team Description 08/11/2019 Refill [facility] Endocrinology- Kt Garcia Refill Request [address] Professional Office [facility] [address] [phone] [facility] [place] [address] Allergies No Known Allergiesdocumented as of this encounter (statuses as of 08/11/2019) Medications Medication Sig Dispensed Refills Start Date End Date Status rivaroxaban (XARELTO) 20 Take by mouth. 0 Active mg tablet Blood Pressure Monitor Use as directed 1 Kit 0 11/20/2015 Active (BLOOD PRESSURE KIT) KitIndications: Primary adrenal insufficiency dexamethasone (DECADRON) Inject 4 mg once 1 mL 2 11/28/2015 Active 4 mg/mL injection for ER use only for unconsciousness. rosuvastatin 10 mg 0 12/03/2016 Active tablet fludrocortisone 0.1 mg Take 1 tablet by 90 tablet 2 04/30/2019 Active tabletIndications: mouth daily. Primary adrenal insufficiency levothyroxine 88 mcg Take 1 tablet by 90 tablet 1 06/07/2019 Active tabletIndications: mouth every Primary hypothyroidism morning. PREDNISONE 10 mg TAKE 1 TABLET 90 tablet 1 08/02/2019 Active tabletIndications: DAILY Primary adrenal insufficiency documented as of this encounter (statuses as of 08/11/2019) Active Problems Problem Noted Date Vitamin D deficiency 02/26/2016 Pure hypercholesterolemia 02/26/2016 Primary adrenal insufficiency 11/20/2015 Primary hypothyroidism 11/20/2015 Primary ovarian failure 11/20/2015 documented as of this encounter (statuses as of 08/11/2019) Social History Tobacco Use Types Packs/Day Years Used Date Never Smoker Alcohol Use Drinks/Week oz/Week Comments Not Asked 0 Standard drinks or equivalent 0.0 Sex Assigned at Date Recorded Not on file Job Start Date Occupation Industry Not on file Not on file Not on file Travel History Travel Start Travel End No recent travel history available. documented as of this encounter Last Filed Vital Signs Not on filedocumented in this encounter Plan of Treatment Date Type Specialty Care Team Description 09/21/2019 Office Visit Endocrinology Diabetes & Kt Garcia Metabolism [address] [place] [address] [place] [address] [phone] Health Maintenance Due Date Last Done Comments DTaP,Tdap,and Td Vaccines (1 - 1994 Tdap) PAP SMEAR 1996 MAMMOGRAM 2015 INFLUENZA VACCINE (#1) 2019 PNEUMOCOCCAL 0-64 YEARS COMBINED Aged Out No longer eligible based on SERIES patient's age to complete this topic documented as of this encounter Results Not on filedocumented in this encounter Visit Diagnoses Diagnosis Primary adrenal insufficiency Glucocorticoid deficiency documented in this encounter Insurance Payer Benefit Plan / Subscriber ID Effective Dates Phone Address Type Group [facility] [id number] 2017-Presen PPO/POS PPO/POS t documented as of this encounter
--- OUTSIDE RECORDS SUMMARY | 2019-11-07 13:16 | XMS REPORT ---
:1975 Author Organization [facility] Address [address] [place] [address] Dr. Moreau [address] [place] [address] Care Team Providers Name Role Phone Unavailable Unavailable Unavailable Problems This patient has no known problems. Allergies, Adverse Reactions, Alerts This patient has no known allergies or adverse reactions. Medications This patient has no known medications.
--- OUTSIDE RECORDS SUMMARY | 2019-11-07 13:16 | XMS REPORT | Summary of Care ---
:1975 Author Organization [facility] Address [address] [place] [address] Care Team Providers Name Role Phone Delbert Scruggs Primary Care Provider Reason for Visit Reason Comments Refill Request Encounter Details Date Type Department Care Team Description 07/30/2019 Refill [facility] Endocrinology- Nevin Damon MD Refill Request [place] Professional Office [address] [place] [phone] Allergies No Known Allergiesdocumented as of this encounter (statuses as of 08/02/2019) Medications Medication Sig Dispensed Refills Start Date End Date Status rivaroxaban (XARELTO) Take by 0 Active 20 mg tablet mouth. Blood Pressure Use as 1 Kit 0 11/20/2015 Active Monitor (BLOOD directed PRESSURE KIT) KitIndications: Primary adrenal insufficiency dexamethasone Inject 4 mg 1 mL 2 11/28/2015 Active (DECADRON) 4 mg/mL once for ER injection use only for unconsciousdania s. rosuvastatin 10 mg 0 12/03/2016 Active tablet fludrocortisone 0.1 Take 1 tablet 90 tablet 2 04/30/2019 Active mg tabletIndications: by mouth Primary adrenal daily. insufficiency levothyroxine 88 mcg Take 1 tablet 90 tablet 1 06/07/2019 Active tabletIndications: by mouth every Primary morning. hypothyroidism PREDNISONE 10 mg TAKE 1 TABLET 90 tablet 1 08/02/2019 Active tabletIndications: DAILY Primary adrenal insufficiency predniSONE 10 mg TAKE 1 TABLET 90 tablet 0 05/03/2019 08/30/201 Discontinued tabletIndications: DAILY 9 Primary adrenal insufficiency documented as of this encounter (statuses as of 08/02/2019) Active Problems Problem Noted Date Vitamin D deficiency 02/26/2016 Pure hypercholesterolemia 02/26/2016 Primary adrenal insufficiency 11/20/2015 Primary hypothyroidism 11/20/2015 Primary ovarian failure 11/20/2015 documented as of this encounter (statuses as of 08/02/2019) Social History Tobacco Use Types Packs/Day Years [...] Treatment Date Type Specialty Care Team Description 01/26/2020 Office Visit Endocrinology Diabetes & Nevin Damon, Metabolism MD Health Maintenance Due Date Last Done Comments [...] ID Effective Dates Phone Address Type Group [facility] [id number] 2017-Presen PPO/POS PPO/POS t documented as of this encounter
--- OUTSIDE RECORDS SUMMARY | 2019-11-07 13:16 | XMS REPORT | Summary of Care ---
:1975 Author Organization [facility] - Health Address [address] [place] [address] Care Team Providers Name Role Phone Delbert Scruggs Primary Care Provider Encounter Details Date Type Department Care Team Description 08/06/2019 Orders Only [facility] Doctor Unassigned, No [address] [facility] [address] [address] [place] [id number] Allergies No Known Allergiesdocumented as of this encounter (statuses as of 08/06/2019) Medications Medication Sig Dispensed Refills Start Date [...] as of this encounter (statuses as of 08/06/2019) Active Problems Problem Noted Date Vitamin D deficiency 02/26/2016 Pure hypercholesterolemia 02/26/2016 Primary adrenal insufficiency 11/20/2015 Primary hypothyroidism 11/20/2015 Primary ovarian failure 11/20/2015 documented as of this encounter (statuses as of 08/06/2019) Social History Tobacco Use Types Packs/Day Years [...] Treatment Date Type Specialty Care Team Description 08/06/2019 Appointment Radiology Radiology [address] [place] [address] 01/26/2020 Office Visit Endocrinology Diabetes & Nevin Damon MD Metabolism Health Maintenance Due Date Last Done Comments DTaP,Tdap,and Td Vaccines (1 - 1994 Tdap) PAP SMEAR 1996 MAMMOGRAM 2015 INFLUENZA VACCINE (#1) 2019 PNEUMOCOCCAL 0-64 YEARS COMBINED Aged Out No longer eligible based on SERIES patient's age to complete this topic documented as of this encounter Procedures Procedure Name Priority Date/Time Associated Diagnosis Comments NO SHOW OR MISSED Routine 08/06/2019 7:50 AM APPOINTMENT POLICY CDT ACKNOWLEDGEMENT documented in this encounter Results Not on filedocumented in this encounter Insurance Payer Benefit Plan / Subscriber ID Effective Dates Phone Address Type Group [facility] [id number] 2017-Presen PPO/POS PPO/POS t documented as of this encounter
--- OUTSIDE RECORDS SUMMARY | 2019-11-07 13:16 | XMS REPORT | Summary of Care ---
:1975 Author Organization [facility] Address [address] [place] [address] Care Team Providers Name Role Phone Delbert Scruggs Primary Care Provider Reason for Referral Radiology Services (Routine) Status Reason Specialty Diagnoses / Referred By Referred To Procedures Contact Contact Closed Diagnostic Diagnoses Screening for osteoporosis Delbert Scruggs Radiology Procedures DEXA AXIAL (HIP AND SPINE) [place] [address] [place] [address] Radiology Services (Routine) Status Reason Specialty Diagnoses / Referred By Referred To Procedures Contact Contact Closed Diagnostic Diagnoses Screening for osteoporosis Delbert Scruggs Radiology Procedures DEXA AXIAL (HIP AND SPINE) [place] [address] [place] [address] Reason for Visit Radiology Services (Routine) Status Reason Specialty Diagnoses / Referred By Referred To Procedures Contact Contact Closed Diagnostic Diagnoses Screening for osteoporosis Delbert Scruggs Radiology Procedures DEXA AXIAL (HIP AND SPINE) [place] [address] [place] [address] Encounter Details Date Type Department Care Team Description 08/06/2019 Hospital Encounter [facility] Arrived [facility] [address] [place] [address] [place] [address] [place] [phone] Allergies No Known Allergiesdocumented as of this encounter (statuses as of 08/07/2019) Medications Medication Sig Dispensed Refills Start Date [...] as of this encounter (statuses as of 08/07/2019) Active Problems Problem Noted Date Vitamin D deficiency 02/26/2016 Pure hypercholesterolemia 02/26/2016 Primary adrenal insufficiency 11/20/2015 Primary hypothyroidism 11/20/2015 Primary ovarian failure 11/20/2015 documented as of this encounter (statuses as of 08/07/2019) Social History Tobacco Use Types Packs/Day Years [...] Visit Endocrinology Diabetes & Nevin Damon, Metabolism Health Maintenance Due Date Last Done Comments DTaP,Tdap,and Td Vaccines (1 - 1994 Tdap) PAP SMEAR 1996 MAMMOGRAM 2015 INFLUENZA VACCINE (#1) 2019 PNEUMOCOCCAL 0-64 YEARS COMBINED Aged Out No longer eligible based on SERIES patient's age to complete this topic documented as of this encounter Procedures Procedure Name Priority Date/Time Associated Diagnosis Comments DEXA AXIAL (HIP AND Routine 08/06/2019 8:37 Screening for Results for this SPINE) AM CDT osteoporosis procedure are in the results section. documented in this encounter Results DEXA AXIAL (HIP AND SPINE) (08/06/2019 8:37 AM CDT) Specimen Impressions Performed At [facility]/[employer] 1. Lumbar Spine L1-L4: The calculated total T-score is-3.1, and the Z-score is -3.5, which is osteoporosis. The total bone mineral density is calculated at 0.808 g/cm2. This puts the patient at high risk for compression fractures. 2. Right Hip: The calculated T-score at the femoral neck is -2.0, and the Z-score is -1.7, osteopenia. The calculated total T-score is -2.1, and the Z-score is minus 2., which is osteopenia. The total bone mineral density is calculated at 0.741 g/cm2. There is increased risk for femoral neck fractures. Narrative Performed At * * * * * * * * ORIGINAL REPORT * * * * * * * * [facility]/[employer] EXAM: Dual-energy X-ray absorptiometry. HISTORY: Screening for osteoporosis none Written orders COMPARISON: None. TECHNIQUE and FINDINGS: Bone densitometry of the lumbar spine and right hip was performed. WHO-definitions: T-score normal: +/- 1 SD around the mean osteopenia: >1 to 2.4 SD below the mean osteoporosis: >2.5 SD below the mean Fracture risk doubles for each 1.5 SD below the mean. Procedure Note [facility], Radiant Results Inft User - 08/06/2019 8:41 AM CDT * * * * * * * * ORIGINAL REPORT * * * * * * * * EXAM: Dual-energy X-ray absorptiometry. HISTORY: Screening for osteoporosis none Written orders COMPARISON: None. TECHNIQUE and FINDINGS: Bone densitometry of the lumbar spine and right hip was performed. WHO-definitions: T-score normal: +/- 1 SD around the mean osteopenia: >1 to 2.4 SD below the mean osteoporosis: >2.5 SD below the mean Fracture risk doubles for each 1.5 SD below the mean. IMPRESSION 1. Lumbar Spine L1-L4: The calculated total T-score is -3.1, and the Z-score is -3.5, which is osteoporosis. The total bone mineral density is calculated at 0.808 g/cm2. This puts the patient at high risk for compression fractures. 2. Right Hip: The calculated T-score at the femoral neck is -2.0, and the Z-score is -1.7, osteopenia. The calculated total T-score is -2.1, and the Z-score is minus 2., which is osteopenia. The total bone mineral density is calculated at 0.741 g/cm2. There is increased risk for femoral neck fractures. Performing Organization Address City/State/Zipcode Phone Number PACS/VR/DOSE documented in this encounter Visit Diagnoses Diagnosis Screening for osteoporosis Special screening for osteoporosis documented in this encounter Insurance Payer Benefit Plan / Subscriber ID Effective Dates Phone Address Type Group [facility] [id number] 2017-Enrique PPO/POS PPO/POS t documented as of this encounter
--- NOTE | 2019-11-07 14:59 | EDPHYS ---
Physician Documentation [facility] Name: Ayleen Girard Age: 44 yrs Sex: Female : 1975 Arrival Date: 11/07/2019 Time: 13:22 Bed 12 Private MD: ED Physician Kt Tinsley HPI: 11/07 15:05 This 44 yrs old Female presents to ER via Ambulatory with complaints of Flu kdr Symptoms. 15:05 The patient has had acute onset of upper respiratory symptoms for two days. 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 She denies fever but has had chills, cough and congestion. She has taken Mucinex with some relief. Onset: The symptoms/episode began/occurred 2 day(s) ago. Severity of symptoms: At their worst the symptoms were mild moderate just prior to arrival, in the emergency department the symptoms are unchanged. The patient has not experienced similar symptoms in the past. The patient has not recently seen a physician. 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 - Social history:: Smoking status: Patient/guardian denies using tobacco. - Ebola Screening: : Patient negative for fever greater than or equal to 101.5 degrees Fahrenheit, and additional compatible Ebola Virus Disease symptoms Patient denies exposure to infectious person Patient denies travel to an Ebola-affected area in the 21 days before illness onset No symptoms or risks identified at this time. ROS: 15:05 Constitutional: Negative for fever and weight loss - has had chills Eyes: Negative for kdr injury, pain, redness, and discharge, ENT: Negative for injury, pain, and discharge, Neck: Negative for injury, pain, and swelling, Cardiovascular: Negative for chest pain, palpitations, and edema, Abdomen/GI: Negative for abdominal pain, nausea, vomiting, diarrhea, and constipation, Back: Negative for injury and pain, : Negative for injury, bleeding, discharge, and swelling, MS/Extremity: Negative for injury and deformity, Skin: Negative for injury, rash, and discoloration, Neuro: Negative for headache, weakness, numbness, tingling, and seizure activity. Psych: Negative for depression, anxiety, suicide ideation, homicidal ideation, and hallucinations, Allergy/Immunology: Negative for hives, rash, and allergies, Endocrine: Negative for neck swelling, polydipsia, polyuria, polyphagia, and marked weight changes, Hematologic/Lymphatic: Negative for swollen nodes, abnormal bleeding, and unusual bruising. 15:05 ENT: Positive for Facial congestoin. 15:05 Respiratory: Positive for cough, with no reported sputum, Negative for dyspnea on exertion, orthopnea, pleurisy, shortness of breath, sputum production, wheezing. Exam: 15:05 Constitutional: This is a well developed, well nourished patient who is awake, alert, kdr and in no acute distress. Head/Face: Normocephalic, atraumatic. Eyes: Pupils equal round and reactive to light, extra-ocular motions intact. Lids and lashes normal. Conjunctiva and sclera are non-icteric and not injected. Cornea within normal limits. Periorbital areas with no swelling, redness, or edema. ENT: Nares patent. No nasal discharge, no septal abnormalities noted. Tympanic membranes are normal and external auditory canals are clear. Oropharynx with no redness, swelling, or masses, exudates, or evidence of obstruction, uvula midline. Mucous membranes moist. Neck: Trachea midline, no thyromegaly or masses palpated, and no cervical lymphadenopathy. Supple, full range of motion without nuchal rigidity, or vertebral point tenderness. No Meningismus. Chest/axilla: Normal chest wall appearance and motion. Nontender with no deformity. No lesions are appreciated. Neuro: Awake and alert, GCS 15, oriented to person, place, time, and situation. Cranial nerves II-XII grossly intact. Motor strength 5/5 in all extremities. Sensory grossly intact. Cerebellar exam normal. Normal gait. Psych: Awake, alert, with orientation to person, place and time. Behavior, mood, and affect are within normal limits. Vital Signs: 13:44 BP 117 / 75; Pulse 103; Resp 17; Temp 98.1; Pulse Ox 95% on R/A; Weight 79.38 kg (R); sg Height 5 ft. 1 in. (154.94 cm) (R); Pain 7/10; 13:44 Body Mass Index 33.07 (79.38 kg, 154.94 cm) MDM: 14:58 Patient medically screened. kdr 15:05 Data reviewed: vital signs, nurses notes, lab test result(s). Counseling: I had a kdr detailed discussion with the patient and/or guardian regarding: the historical points, exam findings, and any diagnostic results supporting the discharge/admit diagnosis, lab results, the need for outpatient follow up. 11/07 13:43 Order name: Flu; Complete Time: 14:51 sg Administered Medications: No medications were administered Disposition: 11/07/19 14:58 Discharged to Home. Impression: Viral infection of unspecified site, Viral infection, unspecified, Acute upper respiratory infection, unspecified. - Condition is Stable. - Discharge Instructions: Upper Respiratory Infection, Adult, Eayi-os-Cdzh, Viral Respiratory Infection, [id number]-Icpf. - Prescriptions for Tamiflu 75 mg Oral Capsule - take 1 capsule by ORAL route every 12 hours for 5 days; 10 capsule. Guaifenesin AC 10- 100 mg/5 mL Oral Liquid - take 10 milliliter by ORAL route every 4 hours As needed; 240 milliliter. - Medication Reconciliation Form, Thank You Letter, Antibiotic Education, Prescription Opioid Use, Work release form, Family Work Release form. - Follow up: Private Physician; When: 2 - 3 days; Reason: If symptoms return, Further diagnostic work-up, Recheck today's complaints, Continuance of care, Re-evaluation by your physician. - Problem is new. - Symptoms are unchanged. Signatures: Dispatcher [employer] EDSaqib Brandon RN RN Kt Tinsley MD MD kdr Stephanie Frias RN RN iw Corrections: (The following items were deleted from the chart) 15:14 14:58 11/07/2019 14:58 Discharged to Home. Impression: Viral infection of unspecified iw site; Viral infection, unspecified; Acute upper respiratory infection, unspecified. Condition is Stable. Forms are Medication Reconciliation Form, Thank You Letter, Antibiotic Education, Prescription Opioid Use. Follow up: Private Physician; When: 2 - 3 days; Reason: If symptoms return, Further diagnostic work-up, Recheck today's complaints, Continuance of care, Re-evaluation by your physician. Problem is new. Symptoms are unchanged. kdr
--- NOTE | 2019-11-07 14:59 | ER ---
Nurse's Notes [facility] Name: Ayleen Girard Age: 44 yrs Sex: Female : 1975 Arrival Date: 11/07/2019 Time: 13:22 Bed 12 Private MD: Diagnosis: Viral infection of unspecified site;Viral infection, unspecified;Acute upper respiratory infection, unspecified Presentation: 11/07 13:31 Presenting complaint: Patient states: Having fever and body aches for one to two days sg now, concerned she may have the flu. Transition of care: patient was not received from another setting of care. Onset of symptoms was November 07, 2019. Risk Assessment: Do you want to hurt yourself or someone else? Patient reports no desire to harm self or others. Initial Sepsis Screen: Does the patient meet any 2 criteria? No. Patient's initial sepsis screen is negative. Does the patient have a suspected source of infection? No. Patient's initial sepsis screen is negative. Care prior to arrival: None. 13:31 Method Of Arrival: Ambulatory sg 13:31 Acuity: MACIEL 4 sg Triage Assessment: 14:00 General: Appears in no apparent distress. Behavior is calm, cooperative. 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 - Social history:: Smoking status: Patient/guardian denies using tobacco. - Ebola Screening: : Patient negative for fever greater than or equal to 101.5 degrees Fahrenheit, and additional compatible Ebola Virus Disease symptoms Patient denies exposure to infectious person Patient denies travel to an Ebola-affected area in the 21 days before illness onset No symptoms or risks identified at this time. Screenin:10 Abuse screen: Denies threats or abuse. Denies injuries from another. Nutritional iw screening: No deficits noted. Tuberculosis screening: No symptoms or risk factors identified. Fall Risk None identified. Assessment: 14:00 General: Appears in no apparent distress. Behavior is calm, cooperative. Pain: iw Complains of pain in head. Neuro: Level of Consciousness is awake, alert, obeys commands, Oriented to person, place, time, situation, Moves all extremities. Full function. Respiratory: Respiratory effort is even, unlabored, Respiratory pattern is regular. Vital Signs: 13:44 BP 117 / 75; Pulse 103; Resp 17; Temp 98.1; Pulse Ox 95% on R/A; Weight 79.38 kg (R); sg Height 5 ft. 1 in. (154.94 cm) (R); Pain 7/10; 13:44 Body Mass Index 33.07 (79.38 kg, 154.94 cm) sg ED Course: 13:22 Patient arrived in ED. mr 13:30 Patient has correct armband on for positive identification. iw 13:32 Triage completed. sg 13:32 Arm band placed on. sg 14:00 Flu and/or RSV swab sent to lab. sg 14:20 Stephanie Frias RN is Primary Nurse. iw 14:51 Kt Tinsley MD is Attending Physician. kdr 15:13 No provider procedures requiring assistance completed. Patient did not have IV access iw during this emergency room visit. Administered Medications: No medications were administered Outcome: 14:58 Discharge ordered by . kdr 15:13 Discharged to home ambulatory, with family. iw 15:13 Condition: good 15:13 Discharge instructions given to patient, Instructed on discharge instructions, follow up and referral plans. medication usage, Demonstrated understanding of instructions, follow-up care, medications, Prescriptions given X 2. 15:14 Patient left the ED. iw Signatures: Saqib Miranda RN RN Kt Tinsley MD MD [facility] Ramsay, Wanda mr Stephanie Frias, ROBBY BUSTAMANTE iw
[2019-11-07 17:32] VITALS: BP 117/75; TEMP 98.1; O2SAT 95
== END 2019-11-07 15:14 | disposition home or self-care (01) ==
LOC: ER 13:13
DX: J06.9 Acute upper respiratory infection, unspecified (principal)
CPT/HCPCS: 87804; 99283

== ENCOUNTER 2019-11-23 21:01 | Emergency (ER) | payer OTHER ==
--- OUTSIDE RECORDS SUMMARY | 2019-11-23 21:03 | XMS REPORT ---
:1975 [facility] Address [address] [place] [address] Dr. Moreau [address] [place] [address] Care Team Providers Name Role Phone Unavailable Unavailable Unavailable Problems This patient has no known problems. Allergies, Adverse Reactions, Alerts This patient has no known allergies or adverse reactions. Medications This patient has no known medications.
[2019-11-23] MEDS ORDERED: NA CHLORIDE 0.9% 2,000 ML ONE (22:01)
[2019-11-23] MEDS ORDERED: ONDANSETRON 4 MG/2 ML VIAL ONE (22:01)
[2019-11-23] MEDS ORDERED: HYDROCORTISONE SUC 100 MG INJ ONE (22:01)
[2019-11-23 22:18] LABS: Basophils % 0.5 % (0-1.3); Lymphocytes % 12.4 % (15.3-44.8); MPV 8.4 fL (7.6-11.3); RBC Red Blood Cell Count 4.61 M/uL (3.86-4.86)
[2019-11-23 22:28] LABS: Urine Blood 3+ (NEG); Urine Glucose NEGATIVE (NEG); Urine Protein NEGATIVE (NEG); Urine Specific Gravity 1.025 (1.005-1.030)
[2019-11-23 22:30] LABS: Albumin 3.8 g/dL (3.4-5.0); Bilirubin Direct 0.2 mg/dL (0-0.2); Bilirubin Total 0.7 mg/dL (0.2-1.0); Potassium 3.6 mmol/L (3.5-5.1); Protein, Total 7.3 g/dL (6.4-8.2)
--- NOTE | 2019-11-23 23:54 | ER ---
Nurse's Notes [facility] Name: Ayleen Girard Age: 44 yrs Sex: Female : 1975 Arrival Date: 11/23/2019 Time: 21:04 Bed 17 Private MD: Delbert Scruggs T Diagnosis: Vomiting;Diarrhea, unspecified;Weakness Presentation: 11/23 21:06 Presenting complaint: Patient states: FRIDAY STARTED HAVING DIARRHEA AND THROWING UP. I rv WAS NOT ABLE TO HOLD ANYTHING DOWN. HAD FEVER LAST FRIDAY. Transition of care: patient was not received from another setting of care. Onset of symptoms was November 20, 2019 at 15:00. Risk Assessment: Do you want to hurt yourself or someone else? Patient reports no desire to harm self or others. Initial Sepsis Screen: Does the patient meet any 2 criteria? No. Patient's initial sepsis screen is negative. Does the patient have a suspected source of infection? No. Patient's initial sepsis screen is negative. Care prior to arrival: None. 21:06 Method Of Arrival: Ambulatory rv 21:06 Acuity: MACIEL 3 rv Triage Assessment: 21:14 General: Appears in no apparent distress. Behavior is calm, cooperative. Pain: rv Complains of pain in abdomen. Neuro: Level of Consciousness is awake, alert, obeys commands, Oriented to person, place, time, situation. Cardiovascular: Patient's skin is warm and dry. Respiratory: Airway is patent. GI: Reports lower abdominal pain, diarrhea, nausea, vomiting. 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 - Social history:: Smoking status: Patient/guardian denies using tobacco. - Ebola Screening: : No symptoms or risks identified at this time. - Family history:: not pertinent. Screenin:17 Abuse screen: Denies threats or abuse. Denies injuries from another. Nutritional mg2 screening: No deficits noted. Tuberculosis screening: No symptoms or risk factors identified. Fall Risk IV access (20 points). Assessment: 23:00 General: Appears in no apparent distress. comfortable, Behavior is calm, cooperative. mg2 Pain: Denies pain. Neuro: Level of Consciousness is awake, alert, obeys commands, Oriented to person, place, time, situation. Cardiovascular: Capillary refill < 3 seconds Patient's skin is warm and dry. Respiratory: Airway is patent Respiratory effort is even, unlabored, Respiratory pattern is regular, symmetrical. Respiratory: Reports cough that is. GI: Reports vomiting. : No signs and/or symptoms were reported regarding the genitourinary system. EENT: Reports sore throat. Derm: Skin is intact, is healthy with good turgor, Skin is pink, warm \T\ dry. normal. Musculoskeletal: Circulation, motion, and sensation intact. Capillary refill < 3 seconds. 11/24 00:40 GI: Abdomen is non-distended. mg2 Vital Signs: 11/23 21:09 BP 126 / 93; Pulse 86; Resp 16; Temp 98.6; Pulse Ox 96% ; Weight 79.38 kg; Height 5 ft. rv 2 in. (157.48 cm); 23:25 BP 119 / 63; Pulse 72; Resp 18; Pulse Ox 98% on R/A; mg2 21:09 Body Mass Index 32.01 (79.38 kg, 157.48 cm) rv ED Course: 21:04 Patient arrived in ED. am2 21:04 Delbert Scruggs MD is Private Physician. am2 21:08 Triage completed. rv 21:15 [place], ROBBY is Primary Nurse. mg2 21:15 Arm band placed on Patient placed in the treatment room, Patient notified of wait time. rv 21:40 Tejas Marcos MD is Attending Physician. john 22:45 Inserted saline lock: 20 gauge in right forearm, using aseptic technique. Blood mg2 collected. 23:17 No provider procedures requiring assistance completed. mg2 23:18 Patient has correct armband on for positive identification. Pulse ox on. NIBP on. Door mg2 closed. Warm blanket given. 23:45 CT Abd/Pelvis - IV Contrast Only In Process Unspecified. EDMS 23:51 Delbert Scruggs MD is Referral Physician. john 11/24 00:41 IV discontinued, intact, bleeding controlled, No redness/swelling at site. Pressure mg2 dressing applied. Administered Medications: 11/23 22:05 Drug: Zofran 4 mg Route: IVP; Site: right forearm; mg2 23:56 Follow up: Response: No adverse reaction; Marked relief of symptoms mg2 22:06 Drug: NS 0.9% 1000 ml Route: IV; Rate: 1 bolus; Site: right forearm; mg2 23:56 Follow up: Response: No adverse reaction; IV Status: Completed infusion; IV Intake: mg2 1000ml 22:06 Drug: NS 0.9% 1000 ml Route: IV; Rate: 1 bolus; Site: right forearm; mg2 23:56 Follow up: Response: No adverse reaction; IV Status: Completed infusion; IV Intake: mg2 1000ml 22:37 Drug: Solu-CORTEF 100 mg Route: IVP; Site: right forearm; mg2 23:55 Follow up: Response: No adverse reaction; Marked relief of symptoms mg2 Intake: 23:56 IV: 1000ml; Total: 1000ml. mg2 23:56 IV: 1000ml; Total: 2000ml. mg2 Outcome: 23:52 Discharge ordered by MD. lopez 11/24 00:41 Discharged to home ambulatory. mg2 Condition: good Discharge instructions given to patient, Instructed on discharge instructions, follow up and referral plans. medication usage, Demonstrated understanding of instructions, follow-up care, medications, Prescriptions given X 1. 00:41 Patient left the ED. mg2 Signatures: Dispatcher [employer] Tejas Navarro MD MD cha Moreno, Amanda am2 [place] RN RN mg2 Yovanny Ellis RN RN rv
--- NOTE | 2019-11-23 23:54 | EDPHYS ---
Physician Documentation [facility] Name: Ayleen Girard Age: 44 yrs Sex: Female : 1975 Arrival Date: 11/23/2019 Time: 21:04 Bed 17 Private MD: Delbert Scruggs T ED Physician Tejas Marcos HPI: 11/23 22:07 This 44 yrs old Female presents to ER via Ambulatory with complaints of john Vomiting/Diarrhea. 22:07 The patient presents to the emergency department with nausea, vomiting, diarrhea, that john is intermittent. Onset: The symptoms/episode began/occurred 2 day(s) ago. Possible causes: unknown. The symptoms are aggravated by nothing. The symptoms are alleviated by nothing. Associated signs and symptoms: The patient has no apparent associated signs or symptoms. Severity of symptoms: At their worst the symptoms were mild moderate in the emergency department the symptoms are unchanged. The patient has not experienced similar symptoms in the past. 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 - Social history:: Smoking status: Patient/guardian denies using tobacco. - Ebola Screening: : No symptoms or risks identified at this time. - Family history:: not pertinent. ROS: 22:07 Constitutional: Negative for fever, chills, and weight loss, Eyes: Negative for injury, john pain, redness, and discharge, ENT: Negative for injury, pain, and discharge, Neck: Negative for injury, pain, and swelling, Cardiovascular: Negative for chest pain, palpitations, and edema, Respiratory: Negative for shortness of breath, cough, wheezing, and pleuritic chest pain, Back: Negative for injury and pain, : Negative for injury, bleeding, discharge, and swelling, MS/Extremity: Negative for injury and deformity, Skin: Negative for injury, rash, and discoloration, Neuro: Negative for headache, weakness, numbness, tingling, and seizure, Psych: Negative for depression, anxiety, suicide ideation, homicidal ideation, and hallucinations, Allergy/Immunology: Negative for hives, rash, and allergies, Endocrine: Negative for neck swelling, polydipsia, polyuria, polyphagia, and marked weight changes, Hematologic/Lymphatic: Negative for swollen nodes, abnormal bleeding, and unusual bruising. 22:07 Abdomen/GI: Positive for abdominal pain, nausea and vomiting, diarrhea. Exam: 22:07 Constitutional: This is a well developed, well nourished patient who is awake, alert, john and in no acute distress. Head/Face: Normocephalic, atraumatic. Eyes: Pupils equal round and reactive to light, extra-ocular motions intact. Lids and lashes normal. Conjunctiva and sclera are non-icteric and not injected. Cornea within normal limits. Periorbital areas with no swelling, redness, or edema. ENT: Nares patent. No nasal discharge, no septal abnormalities noted. Tympanic membranes are normal and external auditory canals are clear. Oropharynx with no redness, swelling, or masses, exudates, or evidence of obstruction, uvula midline. Mucous membranes moist. Neck: Trachea midline, no thyromegaly or masses palpated, and no cervical lymphadenopathy. Supple, full range of motion without nuchal rigidity, or vertebral point tenderness. No Meningismus. Chest/axilla: Normal chest wall appearance and motion. Nontender with no deformity. No lesions are appreciated. Cardiovascular: Regular rate and rhythm with a normal S1 and S2. No gallops, murmurs, or rubs. Normal PMI, no JVD. No pulse deficits. Respiratory: Lungs have equal breath sounds bilaterally, clear to auscultation and percussion. No rales, rhonchi or wheezes noted. No increased work of breathing, no retractions or nasal flaring. Back: No spinal tenderness. No costovertebral tenderness. Full range of motion. Skin: Warm, dry with normal turgor. Normal color with no rashes, no lesions, and no evidence of cellulitis. MS/ Extremity: Pulses equal, no cyanosis. Neurovascular intact. Full, normal range of motion. Neuro: Awake and alert, GCS 15, oriented to person, place, time, and situation. Cranial nerves II-XII grossly intact. Motor strength 5/5 in all extremities. Sensory grossly intact. Cerebellar exam normal. Normal gait. Psych: Awake, alert, with orientation to person, place and time. Behavior, mood, and affect are within normal limits. 22:07 Abdomen/GI: Inspection: abdomen appears normal, Bowel sounds: normal, Palpation: nontender, Liver: no appreciated palpable abnormalities, Hernia: not appreciated. Vital Signs: 21:09 BP 126 / 93; Pulse 86; Resp 16; Temp 98.6; Pulse Ox 96% ; Weight 79.38 kg; Height 5 ft. rv 2 in. (157.48 cm); 23:25 BP 119 / 63; Pulse 72; Resp 18; Pulse Ox 98% on R/A; mg2 21:09 Body Mass Index 32.01 (79.38 kg, 157.48 cm) rv MDM: 21:40 Patient medically screened. [facility] 22:09 Data reviewed: vital signs, nurses notes, lab test result(s). [facility] 11/23 21:18 Order name: Flu; Complete Time: 22:[address] [facility] [place] 11/23 21:18 Order name: Strep; Complete Time: 22:[address] [facility] 11/23 21:44 Order name: Basic Metabolic Panel [facility] 11/23 21:44 Order name: CBC with Diff; Complete Time: 22:27 [facility] 11/23 21:44 Order name: Creatinine for Radiology; Complete Time: 23:51 [facility] 11/23 21:44 Order name: Hepatic Function; Complete Time: 23:51 [facility] 11/23 21:44 Order name: Lipase; Complete Time: 23:51 [facility] 11/23 21:45 Order name: Basic Metabolic Panel; Complete Time: 23:51 [facility] 11/23 22:09 Order name: Throat Culture [facility] 11/23 22:23 Order name: Urine Dipstick--Ancillary (enter results); Complete Time: 23:51 j 11/23 22:27 Order name: CT Abd/Pelvis - IV Contrast Only [facility] 11/23 21:44 Order name: IV Saline Lock; Complete Time: 22:06 [facility] 11/23 21:44 Order name: Labs collected and sent; Complete Time: 22:06 [facility] 11/23 21:44 Order name: Urine Dipstick-Ancillary (obtain specimen); Complete Time: 22:36 [facility] 11/23 21:44 Order name: Urine Test (obtain specimen); Complete Time: 22:36 john Administered Medications: 22:05 Drug: Zofran 4 mg Route: IVP; Site: right forearm; mg2 23:56 Follow up: Response: No adverse reaction; Marked relief of symptoms mg2 22:06 Drug: NS 0.9% 1000 ml Route: IV; Rate: 1 bolus; Site: right forearm; mg2 23:56 Follow up: Response: No adverse reaction; IV Status: Completed infusion; IV Intake: mg2 1000ml 22:06 Drug: NS 0.9% 1000 ml Route: IV; Rate: 1 bolus; Site: right forearm; mg2 23:56 Follow up: Response: No adverse reaction; IV Status: Completed infusion; IV Intake: mg2 1000ml 22:37 Drug: Solu-CORTEF 100 mg Route: IVP; Site: right forearm; mg2 23:55 Follow up: Response: No adverse reaction; Marked relief of symptoms mg2 Disposition: 11/23/19 23:52 Discharged to Home. Impression: Vomiting, Diarrhea, unspecified, Weakness. - Condition is Stable. - Discharge Instructions: Diarrhea, Adult, Nausea and Vomiting, Adult, Weakness, Fatigue, Nausea and Vomiting, Adult, [id number], Weakness, [id number]. - Prescriptions for Zofran 4 mg Oral Tablet - take 1 tablet by ORAL route every 12 hours As needed; 20 tablet. - Medication Reconciliation Form, Thank You Letter, Antibiotic Education, Prescription Opioid Use form. - Follow up: Delbert Scruggs MD; When: 2 - 3 days; Reason: Recheck today's complaints, Continuance of care, Re-evaluation by your physician. - Problem is new. - Symptoms have improved. Signatures: Dispatcher [employer] EDDC Tejas Marcos MD MD cha [place]ose, Michele, RN RN mg2 Yovanny Ellis, RN RN rv Corrections: (The following items were deleted from the chart) 11/24 00:41 11/23 23:52 11/23/2019 23:52 Discharged to Home. Impression: Vomiting; Diarrhea, mg2 unspecified; Weakness. Condition is Stable. Forms are Medication Reconciliation Form, Thank You Letter, Antibiotic Education, Prescription Opioid Use. Follow up: Delbert Scruggs; When: 2 - 3 days; Reason: Recheck today's complaints, Continuance of care, Re-evaluation by your physician. Problem is new. Symptoms have improved. john
--- NOTE | 2019-11-24 00:04 | RAD REPORT ---
EXAM DESCRIPTION: CTAbdomen Pelvis W Contrast - 11/23/2019 11:45 pm CLINICAL HISTORY: Abdominal pain. ABD PAIN COMPARISON: No comparisons TECHNIQUE: Biphasic CT imaging of the abdomen and pelvis was performed with 100 ml non-ionic IV cont rast. All CT scans are performed using dose optimization technique as appropriate and may include automated exposure control or mA/KV adjustment according to patient size. FINDINGS: The lung bases are clear.Cholecystectomy clips. Small hiatal hernia. Small low-density liver lesion is seen in the right lobe, nonspecific but likely benign. No intra or extrahepatic biliary tree dilatation. The spleen, pancreas, adrenal glands and kidneys are within nor mal limits. No bowel obstruction, free air, free fluid or abscess. The appendix is normal. No evidence of signi ficant lymphadenopathy. Evidence of old pubic rami fractures present bilaterally. IMPRESSION: No acute intra-abdominal or pelvic finding.
[2019-11-24 00:57] VITALS: TEMP 98.6
[2019-11-24 00:58] VITALS: BP 119/63; O2SAT 98
== END 2019-11-24 00:41 | disposition home or self-care (01) ==
LOC: ER 21:01
DX: R11.2 Nausea with vomiting, unspecified (principal); R19.7 Diarrhea, unspecified; R53.1 Weakness; E03.9 Hypothyroidism, unspecified
CPT/HCPCS: 96361; 87070; 85025; 80048; 36415; 80076; 87081; 81003; 83690; 87804 ×2; 74177; 96375; 96374; 99284; Q9967; J7030; J1720; J2405